=== PATIENT | female | born 1965 | race Caucasian/White ===

== ENCOUNTER 2017-08-04 11:56 | Emergency (ER) | payer OTHER ==
[2017-08-04 12:06] VITALS: BP 105/62; PULSE 103; BMI 28.3
[2017-08-04] MEDS ORDERED: IBUPROFEN 600 MG TABLET (FP) PO ONE ×2 (12:25→12:29)
--- NOTE | 2017-08-04 13:13 | PDOC ---
History of Present Illness - General Chief Complaint: Cold Symptoms Stated Complaint: COLD SYMPTOMS Time Seen by Provider: 08/04/17 12:25 - History of Present Illness Initial Comments: 08/04/17 12:41 CHIEF COMPLAINT: flu symptoms HISTORY OF PRESENT ILLNESS: 52 yo F with no PMH presents to [facility] with body aches, fever, chills, nausea, cough, runny nose, headache since last night. Patient reports sudden onset of symptoms and that she just "feels terrible." She denies any recent travel or sick contacts. Denies vomiting and diarrhea. Denies neck pain or stiffness. PAST MEDICAL HISTORY: Denies past medical history FAMILY HISTORY: Denies SOCIAL HISTORY: Denies tobacco, alcohol, illicit drug use. SURGICAL HISTORY: Denies ALLERGIES: No known drug allergies REVIEW OF SYSTEMS General/Constitutional: Fever and chills, fatigue. HEENT: Runny nose, sneezing. Denies change in vision. Denies ear pain or discharge. Cardiovascular: Denies chest pain or shortness of breath. Respiratory: Cough. Gastrointestinal: Denies nausea, vomiting, diarrhea or constipation. Denies rectal bleeding. Genitourinary: Denies dysuria, frequency, or change in urination. Musculoskeletal: Generalized body aches, denies neck pain or stiffness. Skin and breasts: Denies rash or easy bruising. Neurologic: Headache. Denies vertigo, loss of consciousness, or loss of sensation. PHYSICAL EXAM General Appearance: Well-appearing, appropriately dressed. No apparent distress. HEENT: EOMI, PERRLA, normal ENT inspection, normal voice, TMs normal, pharynx normal. No conjunctival pallor. No photophobia, scleral icterus. Neck: Supple. Trachea midline. No tenderness, rigidity, carotid bruit, stridor , lymphadenopathy, or thyromegaly. Respiratory/Chest: Lungs CTAB. No shortness of breath, chest tenderness, respiratory distress, accessory muscle use. No crackles, rales, rhonchi, stridor , wheezing, dullness Cardiovascular: RRR. S1, S2. Gastrointestinal/Abdominal: Normal bowel sounds. Abdomen soft, non-distended. No tenderness or rebound tenderness. No organomegaly, pulsatile mass, guarding , hernia, hepatomegaly, splenomegaly. Musculoskeletal/Extremities: Normal inspection. FROM of all extremities, normal capillary refill. Pelvis Stable. No CVA tenderness. No tenderness to extremities, pedal edema, swelling, erythema or deformity. Integumentary: Appropriate color, dry, warm. 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 Fully oriented, alert. Appropriate mood/affect. Motor strength 5/5. No appreciable EOM palsy, facial droop or sensory deficit. Past History - Past Medical History Allergies/Adverse Reactions: Allergies Allergy/AdvReac Type Severity Reaction Status Date / Time No Known Allergies Allergy Verified 08/04/17 11:59 Home Medications: Ambulatory Orders Acetaminophen [Tylenol -] 500 mg PO Q8H PRN #30 tablet 08/04/17 Ibuprofen 600 mg PO TID PRN #21 tablet 08/04/17 Oseltamivir Phosphate [Tamiflu] 75 mg PO BID #10 capsule 08/04/17 COPD: No DVT: No - Immunization History Immunization Up to Date: Yes - Suicide/Smoking/Psychosocial Hx Smoking History: Never smoked Information on smoking cessation initiated: No Substance Use Type: None *Physical Exam - Vital Signs Last Vital Signs Temp Pulse Resp BP Pulse Ox 101.5 F H 103 H 17 105/62 100 08/04/17 12:00 08/04/17 12:00 08/04/17 12:00 08/04/17 12:00 08/04/17 12:00 ED Treatment Course - Medications Given in the ED: ED Medications Discontinued Medications Generic Name Dose Route Start Last Admin Trade Name Freq PRN Reason Stop Dose Admin Ibuprofen 600 mg 08/04/17 12:25 08/04/17 12:31 Motrin - PO 08/04/17 12:26 600 mg ONCE ONE Administration Medical Decision Making - Medical Decision Making 08/04/17 13:13 52 yo F with no PMH presents [facility] with body aches, fever, chills, nausea, cough, runny nose, headache since last night. VS notable for temp 101.5F, HR 103. -flu swab -ibuprofen *DC/Admit/Observation/Transfer Diagnosis at time of Disposition: Viral syndrome - Discharge Dispostion Disposition: HOME Condition at time of disposition: Stable Admit: No - Prescriptions Prescriptions: Acetaminophen [Tylenol -] 500 mg PO Q8H PRN #30 tablet PRN Reason: Fever and body aches Ibuprofen 600 mg PO TID PRN #21 tablet PRN Reason: Fever and/or body aches Oseltamivir Phosphate [Tamiflu] 75 mg PO BID #10 capsule - Referrals Referrals: Octaviano Mendieta MD [Primary Care Provider] - - Patient Instructions Printed Discharge Instructions: DI for Viral Syndrome Additional Instructions: Please take medications as prescribed. Drink plenty of fluids to ensure adequate hydration. Follow up with your primary care doctor if symptoms persist past 3-5 days. If you develop any fever unrelieved by Motrin and/or Tylenol, vomiting, diarrhea, neck stiffness, shortness of breath, difficulty breathing, chest pain, or any new or worsening symptoms, please return to the ER. Por favor, tome los medicamentos segn lo recetado. Vera muchos lquidos para asegurar ganesh hidratacin adecuada. Lia un seguimiento con robles mdico de atenci n primaria si los sntomas persisten despus de 3-5 montelongo. Si desarrolla fiebre que no se clarence con Motrin y / o Tylenol, vmitos, diarrea, rigidez en el babs, dificultad para respirar, dificultad para respirar, dolor en el pecho o cualquier sntoma nuevo o que empeora, regrese a la wil de emergencias. - Post Discharge Activity Forms/Work/School Notes: Back to Work
[2017-08-04 13:30] VITALS: TEMP 100.3
[2017-08-04] MEDS ORDERED: ACETAMINOPHEN 325 MG TABLET (FP) PO ONE (13:30)
[2017-08-04] MEDS ORDERED: ACETAMINOPHEN 325 MG TABLET (FP) ONE (13:35)
== END 2017-08-04 13:41 | disposition home or self-care (01) ==
LOC: JERFT 11:56
DX: B34.9 Viral infection, unspecified (principal)
CPT/HCPCS: 87804; 99281-25

== ENCOUNTER 2020-03-03 10:37 | Emergency (ER) | payer OTHER ==
[2020-03-03 10:47] VITALS: BMI 29.2
[2020-03-03] MEDS ORDERED: ONDANSETRON 4 MG/2 ML VIAL IVPUSH ONE (11:10)
[2020-03-03] MEDS ORDERED: MAG HYDROX/AL HYDROX/SIMETH 30 ML UNIT-DOSE CUP PO ONE (11:10)
[2020-03-03] MEDS ORDERED: PANTOPRAZOLE SODIUM 40 MG VIAL IVPUSH ONE (11:11)
--- NOTE | 2020-03-03 11:15 | PDOC ---
History of Present Illness - General Chief Complaint: Pain Stated Complaint: SENT BY URGENT CARE (LLQ ABD PAIN) Time Seen by Provider: 03/03/20 10:51 History Source: Patient Exam Limitations: No Limitations - History of Present Illness Initial Comments: 03/03/20 11:31 55-year-old female no significant past medical history presenting to the ED with left lower quadrant pain since Sunday. Patient states that she was seen and evaluated urgent care and sent to the emergency room for further evaluation. Patient has had the left lower abdominal pain since Sunday with associated nausea but no vomiting or diarrhea progressively getting worse. Patient describes the pain as sharp stabbing 8 out of 10 with no radiation. Pt otherwise denies: fevers, chills, syncope, lightheadedness, dizziness, headaches, neck pain, chest pain, shortness of breath, palpitations, back pain, vomiting, diarrhea, constipation. Past History - Medical History Allergies/Adverse Reactions: Allergies Allergy/AdvReac Type Severity Reaction Status Date / Time No Known Allergies Allergy Verified 09/20/19 22:42 Home Medications: Ambulatory Orders Ciprofloxacin [Cipro -] 500 mg PO BID #14 tablet 03/03/20 Ibuprofen [Ibu] 600 mg PO TID 7 Days #21 tablet 03/03/20 Pantoprazole Sodium [Protonix] 40 mg PO DAILY 14 Days #14 tablet. 03/03/20 metroNIDAZOLE [Flagyl -] 500 mg PO TID 7 Days #21 tablet 03/03/20 COPD: No DVT: No - Reproductive History Is Patient Now?: No - Immunization History Immunization Up to Date: Yes - Psycho-Social/Smoking History Smoking History: Never smoked Have you smoked in the past 12 months: No Information on smoking cessation initiated: No - Substance Abuse Hx (Audit-C & DAST Scrn) How often the patient has a drink containing alcohol: Never Score: In Men: 4 or > Positive; In Women: 3 or > Positive: 0 Screen Result (Pos requires Nsg. Audit-10AR): Negative *Physical Exam - Vital Signs Last Vital Signs Temp Pulse Resp BP Pulse Ox 98.2 F 80 16 111/66 99 03/03/20 10:45 03/03/20 10:45 03/03/20 10:45 03/03/20 10:45 03/03/20 10:45 - Physical Exam 09/02/20 11:32 Gen: AAOx 3, no acute distress, comfortable, no signs of respiratory distress HENT: atraumatic, normocephalic with no laceration or contusion. Nasal mucosa without erythema. Oropharynx without erythema or exudates. Mucous membranes moist. EYES: PERRL, EOM intact, conjunctiva pink NECK: supple; trachea midline; no JVD, no lymphadenopathy, or thyromegaly CV: RRR no murmurs, gallops, or rubs. CHEST: CTA b/l no wheezing, rales or rhonchi ABD: +BS/ND. TTP in LLQ with rebound and guarding EXTREMITY: no cyanosis or erythema. 2+ dorsalis pedis, posterior tibial, and radial pulse. No pedal edema; no calf swelling or tenderness SKIN: no rash, warm and dry, no diaphoresis HEME: no purpura or ecchymosis NEURO: normal speech, CN II-XII intact, sensation intact, normal gait, no cerebellar deficits MS: 5/5 strength in all extremities, FROM intact in all extremities. ED Treatment Course - LABORATORY CBC & Chemistry Diagram: 03/03/20 11:15 03/03/20 11:15 Medical Decision Making - Medical Decision Making 03/03/20 11:33 55-year-old female left lower quadrant pain Vital signs stable Patient symptoms consistent with diverticulitis Will obtain labs UA administer Zofran Maalox and Protonix Will obtain CT abdomen pelvis to further assess for abdominal pathology Will reassess based on results Labs show white blood cell count 6.2 H&H 13.9/41.8 Chemistry within normal limits UA negative Acute sigmoid diverticulitis is seen. Within the involved segment of the sigmoid colon wall ventrally a 1.4 x 1.3 cm rim-enhancing focus is seen which may resent an inflamed diverticulum versus small intramural abscess no pericolic abscess is visualized. Diffuse hepatic steatosis is noted Pt to be discharged on 1 week Cipro and Flagly Pt to follow up with GI without fail Pt appears well and is safe and stable for discharge with strict return precautions including signs and symptoms requring immediate return to the ED Supportive care instructions explained and given to pt. Reasons to return emergently to ER explained and given. Importance of follow up with PMD and other specialists as indicated stressed to pt. Pt verbalized understanding of instructions. Pt to follow up with PMD in 2 days. Discharge - Discharge Information Problems reviewed: Yes Clinical Impression/Diagnosis: Diverticulitis large intestine Qualifiers: Diverticulitis bleeding: without bleeding Diverticulitis complication: without perforation or abscess Qualified Code(s): K57.32 - Diverticulitis of large intestine without perforation or abscess without bleeding Condition: Stable Disposition: HOME - Additional Discharge Information Prescriptions: Ciprofloxacin [Cipro -] 500 mg PO BID #14 tablet metroNIDAZOLE [Flagyl -] 500 mg PO TID 7 Days #21 tablet Ibuprofen [Ibu] 600 mg PO TID 7 Days #21 tablet Pantoprazole Sodium [Protonix] 40 mg PO DAILY 14 Days #14 tablet.dr - Follow up/Referral Referrals: Octaviano Mendieta MD [Primary Care Provider] - Andrew Rehman DO [Staff Physician] - - Patient Discharge Instructions Patient Printed Discharge Instructions: DI for Diverticulitis Additional Instructions: YOU MUST FOLLOW UP WITH GI DOCTOR - Post Discharge Activity
[2020-03-03] MEDS ORDERED: PANTOPRAZOLE SODIUM 40 MG/100 ML BAG IVPB ONE (11:39)
[2020-03-03] MEDS ORDERED: MAG HYDROX/AL HYDROX/SIMETH 30 ML UNIT-DOSE CUP ONE (11:39)
[2020-03-03 11:54] LABS: BASO % 0.7 % (0-2.0); EOS % 4.8 % (0-4.5); HEMATOCRIT 41.8 % (32.4-45.2); HEMOGLOBIN 13.9 GM/dL (10.7-15.3); LYMPH % 34.7 % (8-40); MCH 28.9 pg (25.7-33.7); MCHC 33.3 g/dl (32.0-36.0); MEAN CELL VOLUME 86.8 fl (80-96); MEAN PLT VOLUME 8.9 fl (7.5-11.1); MONO % 7.8 % (3.8-10.2); PLATELET COUNT 155 K/MM3 (134-434); RBC 4.81 M/mm3 (3.60-5.2); RDW 12.6 % (11.6-15.6); WHITE BLOOD COUNT 6.2 K/mm3 (4.0-10.0)
[2020-03-03 11:57] LABS: PH,URINE 5.5 (5.0-8.0); URINE APPEARANCE CLEAR; URINE BILIRUBIN NEGATIVE (NEGATIVE); URINE COLOR YELLOW; URINE GLUCOSE (UA) NEGATIVE (NEGATIVE); URINE KETONE NEGATIVE (NEGATIVE); URINE LEUK ESTERASE NEGATIVE (NEGATIVE); URINE NITRITE NEGATIVE (NEGATIVE); URINE PROTEIN NEGATIVE (NEGATIVE)
[2020-03-03 12:01] LABS: INR 0.94 (0.83-1.09); PROTHROMBIN TIME (PATIENT) 11.1 SEC (9.7-13.0)
[2020-03-03] MEDS ORDERED: ACETAMINOPHEN 1000 MG/100 ML VIAL (NON FORMULARY) IVPB ONE (12:12)
[2020-03-03] MEDS ORDERED: ACETAMINOPHEN INJECTION 100 ML IVPB ONE (12:14)
[2020-03-03 12:27] LABS: ALBUMIN 3.9 g/dl (3.4-5.0); BILIRUBIN,TOTAL 1.4 mg/dL (0.2-1); BLOOD UREA NITROGEN 13.6 mg/dL (7-18); CREATININE 0.8 mg/dL (0.55-1.3); POTASSIUM 3.8 mmol/L (3.5-5.1); TOT PROT 7.8 g/dl (6.4-8.2)
[2020-03-03 14:34] VITALS: BP 122/69; PULSE 60; TEMP 98.7
== END 2020-03-03 15:23 | disposition home or self-care (01) ==
LOC: JER 10:37
PROC: 3E0333Z Introduction of Anti-inflammatory into Peripheral Vein, Percutaneous Approach (ICD-10-PCS; principal; 2020-03-03)
PROC: 3E033GC Introduction of Other Therapeutic Substance into Peripheral Vein, Percutaneous Approach (ICD-10-PCS; 2020-03-03)
DX: K57.32 Diverticulitis of large intestine without perforation or abscess without bleeding (principal)
CPT/HCPCS: 36415; 74177-TC; 80053; 81003; 83690; 85025; 85610; 85730; 87086; 87186; 99285-25; J0131; Q9967